=== PATIENT | female | born 1945 | race Caucasian/White ===

== ENCOUNTER 2016-06-16 12:29 | Day surgery (SDC) | payer OTHER ==
[~2016-06-16] VITALS: Ht 162.6 cm; Wt 71.2 kg
[~2016-06-16 12:29] MED LIST: CEFAZOLIN 1GM IVPB FOR OMNI 50 ML IV ONE
[2016-06-16] MEDS ORDERED: IV RINGERS,LACTATED 1000ML 1,000 ML IV SCH (12:47)
[2016-06-16] MEDS ORDERED: LIDOCAINE 1% 1 ML SYRINGE. ID PRN (13:00)
[2016-06-16] MEDS ORDERED: FENTANYL PF 100 MCG/2 ML VIAL. IV PRN ×2 (13:00)
[2016-06-16] MEDS ORDERED: MIDAZOLAM HCL/PF 2 MG/2 ML VIAL. IV PRN (13:00)
[2016-06-16] MEDS ORDERED: SIMV40TA3 PO (13:06)
[2016-06-16] MEDS ORDERED: LISI10TA2 PO (13:06)
[2016-06-16] MEDS ORDERED: ASPI-482 PO (13:07)
[2016-06-16] MEDS ORDERED: CEFAZOLIN 1GM IVPB FOR OMNI 50 ML IV ONE (13:27)
--- NOTE | 2016-06-16 14:02 | PDOC1 ---
History and Physical Date of Admission Date of Admission DATE: 06/16/16 TIME: 13:59 Identification/Chief Complaint Chief Complaint foot pain Problems: Source Source: Chart review, Patient History of Present Illness History of Present Illness right foot pain, she had been following Dr. Meraz, was referred to Dr. Todd when he retired. Planned obs admit for foot surg. RIght 5th toe pain, inverted toe, difficulty walking without shoes. pain 05/09 med clearance, compliance with home meds Past Medical History Cardiovascular: HTN, Hyperlipidemia Pulmonary: No pertinent hx Hepatobiliary: No pertinent hx Psych: No pertinent hx ENT: No pertinent hx Past Surgical History Past Surgical History: No pertinent history Family History Family History she is the caregiver for her , he is s/p 2 CVA Family History: No Significant Social History Smoke: No ALCOHOL: none Current Medications Current Medications Current Medications Cefazolin Sodium (Ancef 1gm Ivpb For Omni) 50 ml @ 100 mls/hr 1X ONCE IV ; Start 06/16/16 at 06:00; Stop 06/16/16 at 06:29; Status DC Midazolam HCl (Versed) 2 mg PRN 1X PRN IV PRIOR TO PROCEDURE; Start 06/16/16 at 13:00; Stop 06/17/16 at 12:59 Fentanyl Citrate (Fentanyl 2ml Vial) 25 mcg PRN Q5MIN PRN IV X 2 DOSES FOR PAIN ; Start 06/16/16 at 13:00; Stop 06/17/16 at 12:59 Fentanyl Citrate 50 mcg 50 mcg PRN Q5MIN PRN IV X 2 DOSES FOR PAIN; Start 06/16 at 13:00; Stop 06/17/16 at 12:59 Lactated Ringer's (Iv Lactated Ringers) 1,000 ml @ 125 mls/hr Q8H IV Last administered on 06/16/16t 13:23; Start 06/16/16 at 12:47; Stop 06/17/16 at 00:46 Lidocaine HCl 2 ml 2 ml 1X PRN PRN ID IV START; Start 06/16/16 at 13:00; Stop 06/17/16 at 12:59 Cefazolin Sodium (Ancef 1gm Ivpb For Omni) 50 ml @ As Directed STK-MED ONCE IV ; Start 06/16/16 at 13:27; Stop 4/17/17 at 13:28; Status DC Active Scripts Active Reported Aspir 81 (Aspirin) 81 Mg Tablet.dr 1 Tab PO DAILY Lisinopril 10 Mg Tablet 1 Tab PO HS Simvastatin 40 Mg Tablet 40 Tab PO QHS Allergies Allergies: Coded Allergies: No Known Drug Allergies (Unverified , 06/16/16) ROS General: No: Appetite, Chills, Fatigue, Malaise, Night Sweats, Other PSYCHOLOGICAL ROS: No: Anxiety, Behavioral Disorder, Concentration difficultie , Decreased libido, Depression, Disorientation, Hallucinations, Hostility, Irritablity, Memory difficulties, Mood Swings, Obsessive thoughts, Other, Physical abuse, Sexual abuse, Sleep disturbances, Suicidal ideation Eyes: No Blurry vision, No Decreased vision, No Double vision, No Dry eyes, No Excessive tearing, No Eye Pain, No Itchy Eyes, No Loss of vision, No Other, No Photophobia, No Scotomata, No Uses contacts, No Uses glasses HEENT: No: Epistaxis, Heacaches, Hearing change, Nasal congestion, Nasal discharge, Oral lesions, Other, Sinus pain, Sneezing, Snoring, Sore Throat, Tinnitus, Vertigo, Visual Changes, Vocal changes Cardiovascular: No Chest Pain, No Edema, No Lt Headedness, No Orthopnea, No Other, No Palpitations, No Paroxysmal Noc. Dyspnea Gastrointestinal: No Abdominal Pain, No Constipation, No Diarrhea, No Hematochezia, No Melena, No Nausea, No Other, No Vomiting Genitourinary: No , No , No , No , No , No , No , No Discharge, No Dysuria, No Flank Pain, No Frequency, No Hematuria, No Incontinence, No Other, No Pain, No Retention, No Urgency Musculoskeletal: Yes Joint Pain (foot), No Gait Disturbance, No Joint Stiffness, No Joint Swelling, No Muscle Pain, No Muscular Weakness, No Other, No Pain In:, No Swelling In: Neurological: No Behavorial Changes, No Bowel/Bladder ControlChng, No Confusion , No Dizziness, No Gait Disturbance, No Headaches, No Impaired Coord/balance, No Memory Loss, No Numbness/Tingling, No Other, No Seizures, No Speech Problems , No Tremors, No Visual Changes, No Weakness Skin: No Acne, No Dry Skin, No Eczema, No Hair Changes, No Lumps, No Mole Changes, No Mottling, No Nail Changes, No Other, No Pruritus, No Rash, No Skin Lesion Changes Physical Exam General: Alert, Oriented X3, Cooperative, No acute distress HEENT: Atraumatic, EOMI, Mucous membr. 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 Htn hyperlipids cont home meds pain control MAGAN GUAJARDO MD Jun 16, 2016 14:02
[2016-06-16] MEDS ORDERED: POVIDONE-IODINE 10% TOPICAL OINTMENT 28GM TUBE. TP ONE (14:44)
[2016-06-16] MEDS ORDERED: LIDOCAINE 1% 20 ML VIAL. ONE (14:44)
[2016-06-16] MEDS ORDERED: DEXAMETHASONE SOD PHOS 4 MG/ML VIAL ONE (14:44)
[2016-06-16] MEDS ORDERED: BUPIVACAINE MPF 0.5% 30 ML VIAL. ONE (14:44)
[2016-06-16] MEDS ORDERED: PROPOFOL 20 ML IV ONE (14:56)
[2016-06-16] MEDS ORDERED: LIDOCAINE 2% 100 MG/5 ML SYRINGE. ONE (14:56)
[2016-06-16] MEDS ORDERED: FENTANYL PF 100 MCG/2 ML VIAL. ONE (14:57)
[2016-06-16] MEDS ORDERED: DEXAMETHASONE SOD PHOS 20 MG/5 ML VIAL. ONE (15:05)
[2016-06-16] MEDS ORDERED: SEVOFLURANE 16 TO 30 MINUTES. IH ONE (15:05)
[2016-06-16] MEDS ORDERED: ONDANSETRON PF 4 MG/2 ML VIAL. ONE (15:17)
[2016-06-16] MEDS ORDERED: EPHEDRINE PF IN SALINE 50 MG/5 ML DISP.SYRIN. IV ONE (15:30)
[2016-06-16] MEDS ORDERED: HYDR-971 PO (16:32)
--- NOTE | 2016-06-16 16:33 | PDOC4 ---
Operative Note Operative Note Surgeon: Giana Pre operative DX: Bunionette right foot Post operative DX: same Procedure: Z osteotomy 5th metatarsal right foot Anesthesia: LMA with local anesthesia Hemostasis: right ankle tourniquet 250mmHg x 55 minutes EBL: 0mL Materials: Ortho helix 2.0 fully threaded cortical screw x 2 Intraoperative findings: note thickening of joint capsule and nerve lateral 5th metatarsal head. no osteochondral defects noted Patient tolerated both anesthesia and procedure well. Transferred to PACU with VSS and VSI to right foot. Dictation Number: [id number] LYN HOLMAN DPM Jun 16, 2016 16:33
--- NOTE | 2016-06-16 16:54 | RAD ---
Indication postop osteotomy right fifth metatarsal. AP oblique and lateral views of the right foot were obtained. Changes compatible with an osteotomy involving the fifth metatarsal are noted. 2 orthopedic screws are seen associated with the fifth metatarsal and a single with the first metatarsal. Postoperative changes are noted in the soft tissues. An unexpected finding is not seen.
[2016-06-16] MEDS ORDERED: HYDROCODONE/APAP 5/325MG TABLET. PO ONE (17:00)
[2016-06-16 17:18] VITALS: BP 150/78
--- NOTE | 2016-06-16 19:05 | OP ---
DATE OF SURGERY: 06/16/2016 PREOPERATIVE DIAGNOSIS: Bunionette, right foot. POSTOPERATIVE DIAGNOSIS: Bunionette, right foot. PROCEDURE: Z-osteotomy of fifth metatarsal, right foot. SURGEON: Vernon Faria DPM ANESTHESIA: LMA with local. HEMOSTASIS: Right ankle tourniquet at 250 mmHg for 55 minutes. INDICATIONS: The patient is a 71-year-old female with a complaint of chronic pain to the outside of the fifth metatarsal. Radiographs were taken and showed increased intermetatarsal angle between fourth and fifth metatarsal. The patient has exhausted conservative treatment of tailor's bunion with accommodative padding, wider shoe gear, NSAIDs, and ice and wished to proceed with the above-said procedure. No guarantees were made. Discussed possible risks and benefits, as well as complications to include delayed healing of the incision and/or bone infection, need for further surgery, overcorrection, undercorrection, need for further surgery, delayed or nonunion of bone, symptomatic hardware, damage to nerves or blood vessels, burning, tingling, DVT, pulmonary embolism, chronic regional pain syndrome, and loss of foot, limb, or life. The patient signed consent freely. No guarantees were made. DESCRIPTION OF PROCEDURE: The patient was transported to the operating room via a cart and placed on the operating table in a supine position. The patient was given 2 grams IV preoperatively. LMA was administered by Anesthesia, and a reverse Mansfield block was given to the right foot consisting of a 1:1 mixture of 1% lidocaine plain and 0.5% Marcaine plain. A well-padded tourniquet was placed over the right ankle and the right foot was then prepped and draped in the usual aseptic manner. Timeout was taken and we verified the patient, the procedure to be performed, any allergies, and the right limb. The Esmarch bandage was used to exsanguinate the right foot, and the right ankle tourniquet was inflated to 250 mmHg. Attention was directed to the dorsolateral fifth metatarsal, where a 5-cm incision was made just lateral to the extensor tendon. This was deepened down to the level of the joint capsule. Small vessels were cauterized. Care was taken to retract the neurovascular bundle, and a linear incision was made into the joint capsule and the distal two-thirds of the fifth metatarsal was reflected ____ periosteum from the metatarsal bone. Next, a sagittal saw was used to resect the fifth metatarsal head and the sagittal saw was used to make a Z-osteotomy through the lateral aspect of the fifth metatarsal. Capital fragment was then displaced medially 2 mm and a solid fixation was achieved with two 2.0 fully threaded cortical screw/ortho____ screws. Solid fixation was achieved and the over-hang of bone was then resected with the sagittal saw as well as a small dorsal eminence of the fifth metatarsal head. The wound was then copiously irrigated with sterile saline and the joint capsule was re-approximated with 3-0 Vicryl and the skin was re-approximated with 4-0 nylon. Postop injection was given of 10 mL of 0.5% Marcaine plain and 4 mg of Decadron. Next, applied a Betadine ointment, Adaptic gauze, 4 x 4 compound bandage, and an Blaise bandage for dressing. The ankle tourniquet was deflated after 35 minutes and good perfusion was noted to all digits of the right foot. The patient is to be minimally weightbearing, bathroom privileges only to the right, and a CAM boot, which will be dispensed in the PACU from [facility] [employer], and postop instructions are in the chart. VERNON FARIA DPM DR: Jason JOB#: [id number] / [id number]
== END 2016-06-16 17:38 | disposition home or self-care (01) ==
LOC: SURG 12:29
PROVIDERS: ATTEND Podiatrist Foot & Ankle Surgery
DX: M21.621 Bunionette of right foot (principal); E78.00 Pure hypercholesterolemia, unspecified; I10 Essential (primary) hypertension
CPT/HCPCS: 28110; 73630; C1713; C1769; J0690; J1100; J2405; J2704; J3010; J3490